=== PATIENT | female | born 1985 | race Caucasian/White ===

== ENCOUNTER 2016-07-31 09:48 | Emergency (ER) | payer MEDICAID, OTHER ==
[2016-07-31 10:07] VITALS: BP 109/65
[2016-07-31 10:34] LABS: RAPID STREP SCREEN REAGENT QC YELLOW (YELLOW)
[2016-07-31] MEDS ORDERED: DEXAMETHASONE 10 MG/ML VIAL PO STA (10:45)
[2016-07-31] MEDS ORDERED: AMOXICILLIN 250 MG CAPSULE PO STA (10:45)
--- NOTE | 2016-07-31 10:48 | ED Physician Documentation ---
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 - Present Medications Home Medications: Ambulatory Orders Medication Instructions Recorded Confirmed Vit W-Ca,Fe,FA(<1 mg) 03/09/14 03/09/14 [ Vitamins] Amoxicillin 500 mg PO Q8H #30 capsule 07/31/16 - Allergies Allergies/Adverse Reactions: Allergies Allergy/AdvReac Type Severity Reaction Status Date / Time No Known Drug Allergies Allergy Verified 03/09/14 07:23 - Social History Does the pt smoke?: No Smoking Status: Never smoker Does the pt drink ETOH?: No Does the pt have substance abuse?: No PD ED PE NORMAL - Vitals Vital signs reviewed: Yes - HEENT HEENT: No: Ears normal (TMs dull and retracted), Pharynx benign (enlarged erythematous tonsils s exudate, no INSPECTOR AIDE or trismus) - Neck Neck: No: No adenopathy (ant no posterior) - Cardiac Cardiac: RRR - Respiratory Respiratory: No respiratory distress, Clear bilaterally - Abdomen Abdomen: Non tender, No organomegaly Results - Vitals Vitals: Vital Signs - 24 hr 07/31/16 10:00 Temperature 36.5 C Heart Rate 77 Respiratory 16 Rate Blood Pressure 109/65 O2 Saturation 98 Oxygen O2 Source Room air - Labs Labs: Laboratory Tests 07/31/16 10:05 Group A Strep Rapid POSITIVE H Departure - Departure Disposition: 01 Home, Self Care Clinical Impression: Strep pharyngitis Condition: Good Instructions: ED Strep Pharyngitis Conf Prescriptions: Amoxicillin 500 mg PO Q8H #30 capsule
[2016-07-31] MEDS ORDERED: CHERRY SYRUP 10 ML UDC PO ONE (10:55)
[2016-07-31] MEDS ORDERED: AMOXICILLIN 250 MG CAPSULE PO ONE (10:55)
[2016-07-31] MEDS ORDERED: DEXAMETHASONE 10 MG/ML VIAL ONE (10:55)
== END 2016-07-31 11:04 | disposition home or self-care (01) ==
LOC: ED 09:48
DX: J02.0 Streptococcal pharyngitis (principal); B95.5 Unspecified streptococcus as the cause of diseases classified elsewhere
CPT/HCPCS: 87430; 99283; A9270

== ENCOUNTER 2016-11-23 08:00 | Outpatient (CLI) | payer MEDICAID | END 2016-11-23 08:01 | disposition home or self-care (01) | LOC: LAB.R 08:00 | PROVIDERS: ATTEND Registered Nurse | DX: Z11.3 Encounter for screening for infections with a predominantly sexual mode of transmission (principal) | CPT/HCPCS: 87491; 87591 ==

== ENCOUNTER 2016-11-23 14:43 | Outpatient (CLI) | payer MEDICAID ==
[2016-11-24 05:59] LABS: TEST RESULT REPORT (())
== END 2016-11-23 14:44 | disposition home or self-care (01) ==
LOC: LAB 14:43
PROVIDERS: ATTEND Registered Nurse
DX: Z11.3 Encounter for screening for infections with a predominantly sexual mode of transmission (principal)
CPT/HCPCS: 36415; 81599; 86592; 86803; 87389; 87491; 87591

== ENCOUNTER 2017-08-14 16:38 | Emergency (ER) | payer MEDICAID ==
[2017-08-14 16:57] VITALS: BP 93/71
--- NOTE | 2017-08-14 17:33 | ED Physician Documentation ---
History of Present Illness - Stated complaint Stated Complaint: 7WKS/FEMALE - Chief complaint Chief Complaint: Critical Care - History obtained from History obtained from: Patient - History of Present Illness Timing: Other ( at approximately 7-1/2 weeks gestation with bleeding and cramping that started a few days ago, the cramping is gone and the bleeding is now very light. 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 - Present Medications Home Medications: Ambulatory Orders Medication Instructions Recorded Confirmed Nitrofurantoin Monohyd/M-Cryst 1 tab PO BID 5 Days capsule 08/14/17 [Macrobid 100 mg Capsule] - Allergies Allergies/Adverse Reactions: Allergies Allergy/AdvReac Type Severity Reaction Status Date / Time No Known Drug Allergies Allergy Verified 08/14/17 16:57 - Social History Does the pt smoke?: No Smoking Status: Never smoker Does the pt drink ETOH?: No Does the pt have substance abuse?: No - Immunizations Immunizations are current?: Yes - POLST Patient has POLST: No PD ED PE NORMAL - Vitals Vital signs reviewed: Yes - General General: Alert and oriented X 3, No acute distress - Abdomen Abdomen: Normal bowel sounds, Soft, Non tender - Female Female : Other (Bedside ultrasound demonstrates single live intrauterine with a heart rate of 155.) - Neuro Neuro: Alert and oriented X 3, Normal speech Results - Vitals Vitals: Vital Signs - 24 hr 08/14/17 16:53 Temperature 36.7 C Heart Rate 81 Respiratory 14 Rate Blood Pressure 93/71 O2 Saturation 98 Oxygen O2 Source Room air - Labs Labs: Laboratory Tests 08/14/17 17:35 Urine Color YELLOW Urine Clarity CLEAR Urine pH 6.0 Ur Specific [place] 1.025 Urine Protein NEGATIVE Urine Glucose (UA) NEGATIVE Urine Ketones NEGATIVE Urine Occult Blood TRACE-LYSE Urine Nitrite POSITIVE H Urine Bilirubin NEGATIVE Urine Urobilinogen 0.2 (NORMAL) Ur Leukocyte Esterase SMALL H Urine RBC 0-5 Urine WBC 6-10 H Ur Squamous Epith Cells FEW Squamous Urine Bacteria Many H Ur Microscopic Review INDICATED Urine Culture Comments INDICATED PD MEDICAL DECISION MAKING - ED course ED course: She is several days worth of vaginal spotting which is actually improving without pain, bedside ultrasound is reassuring and identifies an intrauterine with a heartbeat. She does have evidence of cystitis on UA. Departure - Departure Disposition: Home, Self Care Clinical Impression: Cystitis, Vaginal bleeding Qualifiers: Weeks of gestation: less than 8 weeks Qualified Code(s): Z3A.01 - Less than 8 weeks gestation of Condition: Good Record reviewed to determine appropriate education?: Yes Instructions: ED UTI Cystitis Female, ED Preg Established Normal Sxs Follow-Up: [facility] [Provider Group] Prescriptions: Nitrofurantoin Monohyd/M-Cryst [Macrobid 100 mg Capsule] 1 tab PO BID 5 Days capsule
[2017-08-14 17:42] LABS: BILIRUBIN,URINE NEGATIVE (NEGATIVE); GLUCOSE, URINE (UA) NEGATIVE (NEGATIVE); KETONES,URINE (UA) NEGATIVE (NEGATIVE); LEUKOCYTE ESTERASE, URINE SMALL (NEGATIVE); NITRITE,URINE POSITIVE (NEGATIVE); OCCULT BLOOD,URINE TRACE-LYSE (NEGATIVE); PROTEIN,URINE NEGATIVE (NEGATIVE); UROBILINOGEN,URINE 0.2 (NORMAL) E.U./dL (NORMAL)
[2017-08-14 17:44] LABS: CLARITY,URINE CLEAR (CLEAR)
[2017-08-14 17:50] LABS: BACTERIA,URINE Many /HPF (None Seen); RBC,URINE 0-5 /HPF (0-5); SQUAMOUS EPITHELIAL CELL,UR FEW Squamous (<= Few)
[2017-08-14] MEDS ORDERED: NITROFURANTOIN MACRO 100 MG CAPSULE PO STA (17:50)
== END 2017-08-14 18:06 | disposition home or self-care (01) ==
LOC: ED 16:38
DX: O46.91 Antepartum hemorrhage, unspecified, first trimester (principal); O23.11 Infections of bladder in pregnancy, first trimester; Z3A.01 Less than 8 weeks gestation of pregnancy
CPT/HCPCS: 36415; 81001; 84702; 87086; 87181; 99283; A9270; 81003; 84703

== ENCOUNTER 2017-09-03 14:27 | Outpatient (CLI) | payer MEDICAID | END 2017-09-03 14:28 | disposition home or self-care (01) | LOC: LAB.R 14:27 | PROVIDERS: ATTEND Registered Nurse | DX: O03.89 Complete or unspecified spontaneous abortion with other complications (principal) | CPT/HCPCS: 87491; 87591 ==

== ENCOUNTER 2017-09-03 14:39 | Outpatient (CLI) | payer MEDICAID ==
[2017-09-03 15:03] LABS: BASOPHILS % (AUTO) 0.3 %; EOSINOPHILS % (AUTO) 0.6 %; LYMPHOCYTES # (AUTO) 1.8 10^3/uL (1.5-3.5); MEAN CORPUSCULAR HGB CONC 33.6 g/dL (32.0-36.0); MEAN CORPUSCULAR VOLUME 92.3 fL (81.0-99.0); MEAN PLATELET VOLUME 7.1 fL (7.9-10.8); MONOCYTES # (AUTO) 0.5 10^3/uL (0.0-1.0); MONOCYTES % (AUTO) 6.8 %; NEUTROPHILS # (AUTO) 4.8 10^3/uL (1.5-6.6); NEUTROPHILS % (AUTO) 67.3 %; PLT - PLATELET COUNT 331 10^3/uL (130-450); RED BLOOD COUNT 3.21 10^6/uL (4.20-5.40); RED CELL DISTRIBUTION WIDTH 13.4 % (12.0-15.0); WHITE BLOOD COUNT 7.2 x10^3/uL (4.8-10.8)
== END 2017-09-03 14:40 | disposition home or self-care (01) ==
LOC: LAB 14:39
PROVIDERS: ATTEND Registered Nurse
DX: O03.89 Complete or unspecified spontaneous abortion with other complications (principal)
CPT/HCPCS: 36415; 84702; 85025

== ENCOUNTER 2017-09-03 15:30 | Outpatient (CLI) | payer MEDICAID ==
--- NOTE | 2017-09-03 18:25 | Ultrasound Report ---
Procedure Date: 09/03/2017 Accession Number: [id number] / [id number] Procedure: US - Pelvic w/Transvaginal CPT Code: FULL RESULT: EXAM: PELVIC ULTRASOUND EXAM DATE: 09/03/2017 05:54 PM. CLINICAL HISTORY: Complete or unspecified spontaneous . Generalized pain. Possible right ectopic at a prior hospital. COMPARISON: None. TECHNIQUE: Realtime transabdominal pelvic scan performed to identify the uterus and adnexa and as an overview of other pelvic structures, followed by transvaginal scan to provide greater detail of the uterus and adnexa, with static image documentation. FINDINGS: Uterus measures 10.1 x 5 x 6 cm, volume 158 cc. The uterus is retroverted. The endometrium is thickened measuring 22.6 mm. There is a moderate amount of vascularity seen at the fundus and body of the endometrium concerning for retained products of conception. Heterogeneous endometrium. No evidence for an intrauterine . The right ovary measures 3.5 x 1.7 x 2.7 cm for a volume of 8.4 cc. Left ovary measures 2.3 x 1.4 x 2.1 cm for a volume of 3.5 cc. Bilateral ovaries appear within normal limits. No evidence for adnexal mass. Left adnexal varices. No free fluid. IMPRESSION: 1. Thickened heterogeneous endometrium with blood flow concerning for retained products of conception. 2. No evidence for an intrauterine . No evidence for an ectopic . Correlate clinically. An ectopic is not excluded. Correlate with the serial beta hCGs. 3. See above. RADIA The above findings were discussed with Irving Cabello by Dr. Maryan Abdullahi at 18:19 hrs on 09/03/2017.
== END 2017-09-03 15:31 | disposition home or self-care (01) ==
LOC: DI 15:30
PROVIDERS: ATTEND Registered Nurse
DX: O03.89 Complete or unspecified spontaneous abortion with other complications (principal); R93.8 Abnormal findings on diagnostic imaging of other specified body structures
CPT/HCPCS: 36415; 76830; 76856; 84702; 85025; 87491; 87591

== ENCOUNTER 2021-03-27 08:00 | Outpatient (CLI) | payer MEDICAID ==
[2021-03-27 17:57] LABS: BILIRUBIN,URINE NEGATIVE (NEGATIVE); GLUCOSE, URINE (UA) NEGATIVE (NEGATIVE); KETONES,URINE (UA) NEGATIVE (NEGATIVE); LEUKOCYTE ESTERASE, URINE NEGATIVE (NEGATIVE); NITRITE,URINE POSITIVE (NEGATIVE); OCCULT BLOOD,URINE NEGATIVE (NEGATIVE); PROTEIN,URINE NEGATIVE (NEGATIVE); UROBILINOGEN,URINE 0.2 (NORMAL) E.U./dL (NORMAL)
[2021-03-27 17:58] LABS: CLARITY,URINE HAZY (CLEAR)
[2021-03-27 19:06] LABS: BACTERIA,URINE Many /HPF (None Seen); RBC,URINE 0-5 /HPF (0-5); SQUAMOUS EPITHELIAL CELL,UR RARE Squamous (<= Few)
== END 2021-03-27 23:59 ==
LOC: LAB.WC 08:00
PROVIDERS: ATTEND Obstetrics & Gynecology
DX: Z36.89 Encounter for other specified antenatal screening (principal); Z32.01 Encounter for pregnancy test, result positive
CPT/HCPCS: 81001; 87086; 87181

== ENCOUNTER 2021-04-05 15:13 | Outpatient (CLI) | payer MEDICAID, BC ==
--- NOTE | 2021-04-05 16:37 | Ultrasound Report ---
PROCEDURE: OB First Trimester w/TV INDICATIONS: POSITIVE TEST OUTSIDE/PRIOR DATING DATA: Last menstrual period (LMP): February 20, 2021. LMP-based estimated date of delivery (VERO): November 27, 2021. First dating scan (date ): April 05, 2021. Estimated date of delivery (VERO) from first dating scan: November 30, 2021. The below data below was generated using the ultrasound VERO of November 30, 2021 TECHNIQUE: Real-time scanning was performed of the fetus and maternal pelvic organs, with image documentation. Endovaginal scanning was also performed to better visualize the fetus and maternal ovaries. COMPARISON: None. FINDINGS: Hypoechoic lesions within the cervix, compatible with nabothian cysts. Embryo: 0.31 cm, compatible with a 5 week, 6 day gestation Heart rate: 112 beats per minute Cervix: Closed. Measurement variability in dating: +/- 4 weeks by LMP, +/- 7 days by mean sac diameter (use before 6 weeks gestation if crown-rump length not able to be measured), +/- 5 days by crown-rump length (6-12 weeks gestation). Maternal organs: Ovaries demonstrated right ovarian cysts, measuring up to 2.2 . IMPRESSION: 1.Early intrauterine gestation as detailed above. Reviewed by: Ben Vegas MD on 04/05/2021 4:36 PM PST Approved by: Ben Vegas MD on 04/05/2021 4:36 PM PST Station ID: [id number]
== END 2021-04-05 15:14 | disposition home or self-care (01) ==
LOC: DI 15:13
PROVIDERS: ATTEND Obstetrics & Gynecology
DX: Z32.01 Encounter for pregnancy test, result positive (principal); Z36.89 Encounter for other specified antenatal screening
CPT/HCPCS: 36415; 85025; 86592; 86762; 86787; 86803; 86850; 86900; 86901; 87340; 87389

== ENCOUNTER 2021-04-05 16:03 | Outpatient (CLI) | payer MEDICAID, BC ==
[2021-04-05 16:20] LABS: BASOPHILS % (AUTO) 0.4 %; EOSINOPHILS # (AUTO) 0.1 10^3/uL (0.0-0.7); EOSINOPHILS % (AUTO) 0.7 %; HCT - HEMATOCRIT 36.6 % (37.0-47.0); HGB - HEMOGLOBIN 11.8 g/dL (12.0-16.0); LYMPHOCYTES # (AUTO) 2.4 10^3/uL (1.5-3.5); LYMPHOCYTES % (AUTO) 28.5 %; MEAN CORPUSCULAR HEMOGLOBIN 29.6 pg (27.0-31.0); MEAN CORPUSCULAR HGB CONC 32.2 g/dL (32.0-36.0); MEAN CORPUSCULAR VOLUME 91.7 fL (81.0-99.0); MEAN PLATELET VOLUME 8.8 fL (7.9-10.8); MONOCYTES # (AUTO) 0.6 10^3/uL (0.0-1.0); MONOCYTES % (AUTO) 7.4 %; NEUTROPHILS # (AUTO) 5.3 10^3/uL (1.5-6.6); NEUTROPHILS % (AUTO) 62.8 %; PLT - PLATELET COUNT 311 10^3/uL (130-450); RED BLOOD COUNT 3.99 10^6/uL (4.20-5.40); RED CELL DISTRIBUTION WIDTH 14.2 % (12.0-15.0); WHITE BLOOD COUNT 8.4 x10^3/uL (4.8-10.8)
[2021-04-06 11:02] LABS: HEPATITIS B SURFACE ANTIGEN NON-REACTIVE (NON-REACTIVE)
[2021-04-06 11:51] LABS: HIV AG/AB 4TH GEN NON-REACTIVE (NON-REACTIVE)
[2021-04-06 12:46] LABS: HEPATITIS C ANTIBODY NON-REACTIVE (NON-REACTIVE)
== END 2021-04-05 16:04 | disposition home or self-care (01) ==
LOC: LAB 16:03
PROVIDERS: ATTEND Obstetrics & Gynecology
DX: Z36.89 Encounter for other specified antenatal screening (principal)
CPT/HCPCS: 36415; 85025; 86592; 86762; 86787; 86803; 86850; 86900; 86901; 87340; 87389

== ENCOUNTER 2021-05-11 14:02 | Outpatient (CLI) | payer BC, MEDICAID ==
[2021-05-11 14:11] LABS: BILIRUBIN,URINE NEGATIVE (NEGATIVE); GLUCOSE, URINE (UA) NEGATIVE (NEGATIVE); KETONES,URINE (UA) 15 mg/dL (NEGATIVE); LEUKOCYTE ESTERASE, URINE TRACE (NEGATIVE); NITRITE,URINE POSITIVE (NEGATIVE); OCCULT BLOOD,URINE NEGATIVE (NEGATIVE); PROTEIN,URINE NEGATIVE (NEGATIVE); UROBILINOGEN,URINE 0.2 (NORMAL) E.U./dL (NORMAL)
[2021-05-11 14:18] LABS: CLARITY,URINE CLOUDY (CLEAR)
[2021-05-11 14:19] LABS: AMORPHOUS SEDIMENT,UR Moderate /LPF; BACTERIA,URINE Moderate /HPF (None Seen); RBC,URINE 0-5 /HPF (0-5); SQUAMOUS EPITHELIAL CELL,UR MANY Squamous (<= Few)
[2021-05-11 18:37] LABS: CHLAMYDIA TRACHOMATIS DNA NEGATIVE (NEGATIVE); NEISSERIA GONORRHOEAE DNA NEGATIVE (NEGATIVE); TRICHOMONAS VAGINALIS DNA NEGATIVE (NEGATIVE)
== END 2021-05-11 14:03 | disposition home or self-care (01) ==
LOC: LAB 14:02
PROVIDERS: ATTEND Obstetrics & Gynecology
DX: R30.0 Dysuria (principal); Z11.3 Encounter for screening for infections with a predominantly sexual mode of transmission
CPT/HCPCS: 81001; 87086; 87181; 87491; 87591; 87661